=== PATIENT | male | born 1990 | race Caucasian/White ===

== ENCOUNTER 2016-11-19 18:12 | Emergency (ER) | payer OTHER ==
--- NOTE | 2016-11-19 18:47 | ED NURSING NOTES ---
Clinical Report - Nurses [facility] [address] [place] [address] 11/19/2016 18:13 Patient: FLAKITO BRINK TRIAGE Triage time 18:17. Acuity: LEVEL 3. Chief Complaint: INJURY TO HEAD. Alert. No acute distress. SEPSIS SCREEN: Sepsis Screen. Negative (no infection suspected/documented). RIO COMA SCORE: [place] Coma Scale: 15- eyes open spontaneously (4); best verbal response- oriented x 4 (5); best motor response- obeys commands (6). --18:24 Oniel Fitzgerald R.N. 18:21 11/19/16. BP: 136/81. HR: 86. RR: 16. O2 saturation: 98% on room air. Temp: 97.7 F (oral). Pain level now 6/10. --18:24 Oniel Fitzgerald R.N. Weight: 77.1 kg stated. Height/Length: 73 inches Per Patient. BMI: 22.4. --18:22 Oniel Fitzgerald R.N. Medications None. --18:23 Oniel Fitzgerald R.N. Allergies No Known Drug Allergy. --18:23 Oniel Fitzgerald R.N. 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 ( hit head on roof of shed when he stood up. lac to top of head). This occurred today. Occurred at home. 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 SOCIAL HX: Heavy tobacco smoker (cigarette)- less than 1 pack per day. No alcohol use or drug use. ABUSE ASSESSMENT: Abuse assessment: The patient was asked "Do you feel safe in your home?". No report of abuse. SELF HARM ASSESSMENT: A self harm assessment was performed. The patient answered "no" to the question "Do you have thoughts of harming or killing yourself?" and "Have you recently had thoughts about harming or killing others?". FALL RISK ASSESSMENT: Fall risk assessment completed. No fall risk identified. NUTRITIONAL RISK ASSESSMENT: The nutritional risk assessment revealed no deficiencies. FUNCTIONAL ASSESSMENT: Functional assessment: no impairments noted. LEARNING NEEDS ASSESSMENT: The learning needs assessment revealed no barriers. SKIN INTEGRITY ASSESSMENT: Skin integrity risk assessment completed. No skin integrity risk identified. --18:24 Oinel Fitzgerald R.N. PROBLEMS: Paresthesia. Otitis Externa. Otitis Media. --18:23 Oniel Fitzgerald R.N. ADDITIONAL SURGERIES: no known surgeries. Assessment GENERAL / NEURO / PSYCH: Alert. Oriented X 4. Appears in no acute distress. Patient appears calm and cooperative. RESPIRATORY: Respirations not labored. CVS: Capillary refill less than 2 seconds. GI / : Abdomen soft. SKIN: ( lac to top of head). --18:24 Oniel Fitzgerald R.N. Interventions ID band on patient. To treatment room. --18:24 Oniel Fitzgerald R.N. PHYSICAL ASSESSMENT Ambulatory to room. GENERAL / NEURO / PSYCH: Alert. Oriented X 4. Appears in no acute distress. HEENT: Vertex: laceration greater than 5.0 cm with controlled bleeding. Pupils equal, round and reactive to light. No signs of head trauma. No swelling of head. No facial swelling. No nasal injury noted. No dental injury noted. RESPIRATORY: Respirations not labored. SKIN: Skin is warm. --18:25 Oniel Fitzgerald R.N. NURSING PROGRESS NOTES The plan of care for this patient has been created. Head of bed elevated. Call light placed in reach. Bed placed in lowest position. Brakes of bed on. Patient ready for evaluation- chart flagged. --18:25 Oniel Fitzgerald R.N. DISPOSITION / DISCHARGE 18:46. Departure time: 1845. Condition at departure: improved and stable. No learning barriers present. Discharge instructions provided and reviewed with the patient. Patient verbalized understanding. Written instructions provided in Hungarian. The patient was discharged by the physician clinical assistant professor. He was discharged home. He left the Emergency Department ambulatory and via private vehicle. Patient driving. --20:46 Oniel Fitzgerald R.N. Locked/Released at 11/19/2016 20:46 by Oniel Fitzgerald R.N.
--- NOTE | 2016-11-19 18:47 | ED NURSING NOTES ---
Clinical Report - Nurses [facility] [address] [place] [address] 11/19/2016 18:13 Patient: FLAKITO BRINK TRIAGE Triage time 18:17. Acuity: LEVEL 3. Chief Complaint: INJURY TO HEAD. Alert. No acute distress. SEPSIS SCREEN: Sepsis Screen. Negative (no infection suspected/documented). RIO COMA SCORE: [place] Coma Scale: 15- eyes open spontaneously (4); best verbal response- oriented x 4 (5); best motor response- obeys commands (6). --18:24 Oniel Fitzgerald R.N. 18:21 11/19/16. BP: 136/81. HR: 86. RR: 16. O2 saturation: 98% on room air. Temp: 97.7 F (oral). Pain level now 6/10. --18:24 Oniel Fitzgerald R.N. Weight: 77.1 kg stated. Height/Length: 73 inches Per Patient. BMI: 22.4. --18:22 Oniel Fitzgerald R.N. Medications None. --18:23 Oniel Fitzgerald R.N. Allergies No Known Drug Allergy. --18:23 Oniel Fitzgerald R.N. 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 ( hit head on roof of shed when he stood up. lac to top of head). This occurred today. Occurred at home. 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 SOCIAL HX: Heavy tobacco smoker (cigarette)- less than 1 pack per day. No alcohol use or drug use. ABUSE ASSESSMENT: Abuse assessment: The patient was asked "Do you feel safe in your home?". No report of abuse. SELF HARM ASSESSMENT: A self harm assessment was performed. The patient answered "no" to the question "Do you have thoughts of harming or killing yourself?" and "Have you recently had thoughts about harming or killing others?". FALL RISK ASSESSMENT: Fall risk assessment completed. No fall risk identified. NUTRITIONAL RISK ASSESSMENT: The nutritional risk assessment revealed no deficiencies. FUNCTIONAL ASSESSMENT: Functional assessment: no impairments noted. LEARNING NEEDS ASSESSMENT: The learning needs assessment revealed no barriers. SKIN INTEGRITY ASSESSMENT: Skin integrity risk assessment completed. No skin integrity risk identified. --18:24 Oniel Fitzgerald R.N. PROBLEMS: Paresthesia. Otitis Externa. Otitis Media. --18:23 Oniel Fitzgerald R.N. ADDITIONAL SURGERIES: no known surgeries. Assessment GENERAL / NEURO / PSYCH: Alert. Oriented X 4. Appears in no acute distress. Patient appears calm and cooperative. RESPIRATORY: Respirations not labored. CVS: Capillary refill less than 2 seconds. GI / : Abdomen soft. SKIN: ( lac to top of head). --18:24 Oniel Fitzgerald R.N. Interventions ID band on patient. To treatment room. --18:24 Oniel Fitzgerald R.N. PHYSICAL ASSESSMENT Ambulatory to room. GENERAL / NEURO / PSYCH: Alert. Oriented X 4. Appears in no acute distress. HEENT: Vertex: laceration greater than 5.0 cm with controlled bleeding. Pupils equal, round and reactive to light. No signs of head trauma. No swelling of head. No facial swelling. No nasal injury noted. No dental injury noted. RESPIRATORY: Respirations not labored. SKIN: Skin is warm. --18:25 Oniel Fitzgerald R.N. NURSING PROGRESS NOTES The plan of care for this patient has been created. Head of bed elevated. Call light placed in reach. Bed placed in lowest position. Brakes of bed on. Patient ready for evaluation- chart flagged. --18:25 Oniel Fitzgerald R.N. DISPOSITION / DISCHARGE 18:46. Departure time: 1845. Condition at departure: improved and stable. No learning barriers present. Discharge instructions provided and reviewed with the patient. Patient verbalized understanding. Written instructions provided in Pashto. The patient was discharged by the physician multimedia assistant. He was discharged home. He left the Emergency Department ambulatory and via private vehicle. Patient driving. --20:46 Oniel Fitzgerald R.N. Locked/Released at 11/19/2016 20:46 by Oniel Fitzgerald R.N.
--- NOTE | 2016-11-19 18:47 | ED CLINICAL REPORT ---
Clinical Report - Physicians/Mid Levels [facility] [address] [place] [address] 11/19/2016 18:13 [id number] Time Seen: 18:24 Nov 19 2016. Arrived- By private vehicle. Historian- patient. HISTORY OF PRESENT ILLNESS Location of injuries- (scalp). Chief Complaint: INJURY TO HEAD. The injury occurred just prior to arrival. Occurred at home. The patient sustained a blow and laceration. No complaint of mild pain. No blow to the head, neck pain or loss of consciousness. Not dazed. (Sustain injury to the scalp prior to arrival. Patient denies LOC. Denies neck pain. injury from the roof of shed.). REVIEW OF SYSTEMS No nausea or laceration. All systems otherwise negative, except as recorded above. PAST HISTORY See nurses notes. Tetanus immunization status is up-to-date. SOCIAL HISTORY Smoker- current status unknown. No alcohol use or drug use. ADDITIONAL NOTES The nursing notes have been reviewed. PHYSICAL EXAM Vital Signs: 11/19/2016 18:21 BP: 136/81. HR: 86. RR: 16. O2 saturation: 98%. Temp: 97.7 F. Appearance: Alert. No backboard or C-collar. Head: Vertex: (just anterior of vertex). Eyes: Pupils equal, round and reactive to light. No ocular injury. ENT: No dental injury. No malocclusion. Neck: Painless ROM. Neck non-tender. No vertebral tenderness. CVS: Heart sounds normal. Pulses normal. Respiratory: Breath sounds normal. Chest nontender. No chest wall injury. Abdomen: No rebound tenderness or guarding. Extremities: Normal inspection. Neuro: [place] Coma Scale: 15- eyes open spontaneously (4); best verbal response- oriented x 3 (5); best motor response- obeys commands (6). Oriented X 3. Mood/affect normal. Speech normal. No motor deficit. No sensory deficit. PROGRESS AND PROCEDURES Laceration Repair: Time: 20:57 Nov 19 2016. Location: (scalp). Time-out completed immediately before the procedure. Length: 3cm. Complexity: simple (local anesthesia used and sutured). Wound depth/shape- linear and involving fascia. Wound is clean. Distal neuro/vascular/tendon status normal. Local anesthesia provided using 1% lidocaine with epi. Post-procedure: he is stable and there are no complications. Bleeding is controlled and neuro-vascular status is intact distal to the wound. ( 6 tim). Course of Care: here in the ER patient with no cervical spine tenderness, negative neuro exam. Laceration of the vertex of the scalp. Repaired with tim in the emergency department. Patient tolerates the procedure well. To follow up outpatient as needed and for staple removal. No signs or concerns or injury. No hemorrhage. No cervical spine tenderness. Patient is stable. Symptoms better. Disposition: Discharged. Condition: good. CLINICAL IMPRESSION Single deep laceration to the scalp. INSTRUCTIONS (Address: [address] [place] [id number] ). Follow-up: Follow up with your doctor in ten days. (Electronically signed by Judy Torres P.A.-C 11/19/2016 20:58)
--- NOTE | 2016-11-19 18:47 | ED CLINICAL REPORT ---
Clinical Report - Physicians/Mid Levels [facility] [address] [place] [address] 11/19/2016 18:13 [id number] Time Seen: 18:24 Nov 19 2016. Arrived- By private vehicle. Historian- patient. HISTORY OF PRESENT ILLNESS Location of injuries- (scalp). Chief Complaint: INJURY TO HEAD. The injury occurred just prior to arrival. Occurred at home. The patient sustained a blow and laceration. No complaint of mild pain. No blow to the head, neck pain or loss of consciousness. Not dazed. (Sustain injury to the scalp prior to arrival. Patient denies LOC. Denies neck pain. injury from the roof of shed.). REVIEW OF SYSTEMS No nausea or laceration. All systems otherwise negative, except as recorded above. PAST HISTORY See nurses notes. Tetanus immunization status is up-to-date. SOCIAL HISTORY Smoker- current status unknown. No alcohol use or drug use. ADDITIONAL NOTES The nursing notes have been reviewed. PHYSICAL EXAM Vital Signs: 11/19/2016 18:21 BP: 136/81. HR: 86. RR: 16. O2 saturation: 98%. Temp: 97.7 F. Appearance: Alert. No backboard or C-collar. Head: Vertex: (just anterior of vertex). Eyes: Pupils equal, round and reactive to light. No ocular injury. ENT: No dental injury. No malocclusion. Neck: Painless ROM. Neck non-tender. No vertebral tenderness. CVS: Heart sounds normal. Pulses normal. Respiratory: Breath sounds normal. Chest nontender. No chest wall injury. Abdomen: No rebound tenderness or guarding. Extremities: Normal inspection. Neuro: [place] Coma Scale: 15- eyes open spontaneously (4); best verbal response- oriented x 3 (5); best motor response- obeys commands (6). Oriented X 3. Mood/affect normal. Speech normal. No motor deficit. No sensory deficit. PROGRESS AND PROCEDURES Laceration Repair: Time: 20:57 Nov 19 2016. Location: (scalp). Time-out completed immediately before the procedure. Length: 3cm. Complexity: simple (local anesthesia used and sutured). Wound depth/shape- linear and involving fascia. Wound is clean. Distal neuro/vascular/tendon status normal. Local anesthesia provided using 1% lidocaine with epi. Post-procedure: he is stable and there are no complications. Bleeding is controlled and neuro-vascular status is intact distal to the wound. ( 6 tim). Course of Care: here in the ER patient with no cervical spine tenderness, negative neuro exam. Laceration of the vertex of the scalp. Repaired with tim in the emergency department. Patient tolerates the procedure well. To follow up outpatient as needed and for staple removal. No signs or concerns or injury. No hemorrhage. No cervical spine tenderness. Patient is stable. Symptoms better. Disposition: Discharged. Condition: good. CLINICAL IMPRESSION Single deep laceration to the scalp. INSTRUCTIONS (Address: [address] [place] [id number] ). Follow-up: Follow up with your doctor in ten days. (Electronically signed by Judy Torres P.A.-C 11/19/2016 20:58)
--- NOTE | 2016-11-19 20:58 | ED MAR SUMMARY ---
..... Medication Administration Record [facility] [address] [place], [place] [id number] Patient: KEENA FLAKITO Mortensen Visit ID: [id number] 26y, M Weight: 77.1 kg Height/Length: 73 in BMI: 22.4 ALLERGIES: No Known Drug Allergy
--- NOTE | 2016-11-19 20:58 | ED DISCHARGE INSTRUCTIONS ---
Patient: FLAKITO BRINK General Instructions [facility] VisitID: [id number] [place] [address] 26y, M Registration Date/Time: 11/19/2016 Single deep laceration to the scalp. INSTRUCTIONS (Address: [place] [address] ). Follow-up: Follow up with your doctor in ten days. ADDITIONAL INFORMATION Laceration, Scalp (Sutures Or Cullen) A laceration is a cut through the skin. This will require stitches (sutures) or cullen if it is deep. Home care The following guidelines will help you care for your laceration at home: During the first two days you may carefully rinse your hair in the shower to remove blood, glass or dirt particles. After two days you may shower and shampoo your hair normally. Have someone help you clean your wound every day: In the shower, wash the area with soap and water. Use a wet cotton swab to loosen and remove any blood or crust that forms. After cleaning, keep the wound clean and dry. Talk with your doctor before applying any antibiotic ointment to the wound. Reapply a fresh bandage. Do not put your head under water (no swimming) until the stitches or cullen have been removed. The doctor may prescribe an antibiotic cream or ointment to prevent infection. Do not stop taking this medication until you have finished the prescribed course or the doctor tells you to stop. The doctor may also prescribe medications for pain. Follow the doctors instructions for taking these medications. If you have chronic liver or kidney disease or ever had a stomach ulcer or GI bleeding, talk with your doctor before using these medicines. Follow-up care Follow up with your health care provider. Most scalp wounds heal within seven days. However, an infection can sometimes occur. Check the wound daily for the warning signs listed below. Stitches or cullen should be removed from the scalp in about 57 days. When to seek medical care Get prompt medical attention if any of these occur: Increasing pain in the wound Redness, swelling, or pus coming from the wound Fever of 100.4F (38C) or higher, or as directed by your health care provider If stitches or cullen come apart or fall out before your next appointment If the wound edges re-open Bleeding not controlled by direct pressure You have been given the following additional information: Laceration, Scalp (Electronically signed by Judy Torres P.A.-C 11/19/2016 20:58)
--- NOTE | 2016-11-19 20:58 | ED DISCHARGE INSTRUCTIONS ---
Patient: FLAKITO BRINK General Instructions [facility] VisitID: [id number] [place] [address] 26y, M Registration Date/Time: 11/19/2016 Single deep laceration to the scalp. INSTRUCTIONS (Address: [place] [address] ). Follow-up: Follow up with your doctor in ten days. ADDITIONAL INFORMATION Laceration, Scalp (Sutures Or Cullen) A laceration is a cut through the skin. This will require stitches (sutures) or cullen if it is deep. Home care The following guidelines will help you care for your laceration at home: During the first two days you may carefully rinse your hair in the shower to remove blood, glass or dirt particles. After two days you may shower and shampoo your hair normally. Have someone help you clean your wound every day: In the shower, wash the area with soap and water. Use a wet cotton swab to loosen and remove any blood or crust that forms. After cleaning, keep the wound clean and dry. Talk with your doctor before applying any antibiotic ointment to the wound. Reapply a fresh bandage. Do not put your head under water (no swimming) until the stitches or cullen have been removed. The doctor may prescribe an antibiotic cream or ointment to prevent infection. Do not stop taking this medication until you have finished the prescribed course or the doctor tells you to stop. The doctor may also prescribe medications for pain. Follow the doctors instructions for taking these medications. If you have chronic liver or kidney disease or ever had a stomach ulcer or GI bleeding, talk with your doctor before using these medicines. Follow-up care Follow up with your health care provider. Most scalp wounds heal within seven days. However, an infection can sometimes occur. Check the wound daily for the warning signs listed below. Stitches or cullen should be removed from the scalp in about 57 days. When to seek medical care Get prompt medical attention if any of these occur: Increasing pain in the wound Redness, swelling, or pus coming from the wound Fever of 100.4F (38C) or higher, or as directed by your health care provider If stitches or cullen come apart or fall out before your next appointment If the wound edges re-open Bleeding not controlled by direct pressure You have been given the following additional information: Laceration, Scalp (Electronically signed by Judy Torres P.A.-C 11/19/2016 20:58)
--- NOTE | 2016-11-19 20:58 | ED MED RECONCILIATION SUMMARY ---
Patient: KEENA FLAKITO Mortensen Medication Reconciliation Report [facility] VisitID: [id number] [address] [place] [place] [address] 26y, M Registration Date/Time: 11/19/2016 Weight: 77.1 kg Height/Length: 73 in. BMI: 22.4 ALLERGIES: No Known Drug Allergy The patient's Home Medications are listed below: NONE. The source(s) of the original Home Medication information: Not obtained. The following Medications were given to the patient in the Emergency Department: None. The following Medications were prescribed to the patient: None.
--- NOTE | 2016-11-19 20:58 | ED MAR SUMMARY ---
..... Medication Administration Record [facility] [address] [place], [place] [id number] Patient: KEENA FLAKITO Mortensen Visit ID: [id number] 26y, M Weight: 77.1 kg Height/Length: 73 in BMI: 22.4 ALLERGIES: No Known Drug Allergy
--- NOTE | 2016-11-19 20:58 | ED MED RECONCILIATION SUMMARY ---
Patient: KEENA FLAKITO Mortensen Medication Reconciliation Report [facility] VisitID: [id number] [address] [place] [address] 26y, M Registration Date/Time: 11/19/2016 Weight: 77.1 kg Height/Length: 73 in. BMI: 22.4 ALLERGIES: No Known Drug Allergy The patient's Home Medications are listed below: NONE. The source(s) of the original Home Medication information: Not obtained. The following Medications were given to the patient in the Emergency Department: None. The following Medications were prescribed to the patient: None.
== END 2016-11-19 18:46 | disposition home or self-care (01) ==
LOC: ED SRH 18:12
DX: S01.01XA Laceration without foreign body of scalp, initial encounter (principal); W22.09XA Striking against other stationary object, initial encounter; Y93.9 Activity, unspecified; Y92.009 Unspecified place in unspecified non-institutional (private) residence as the place of occurrence of the external cause; Y99.9 Unspecified external cause status; F17.210 Nicotine dependence, cigarettes, uncomplicated